=== PATIENT | male | born 2000 | race African-American/Black ===

== ENCOUNTER 2021-07-25 21:19 | Emergency (ER) | payer MEDICAID ==
[~2021-07-25] VITALS: Ht 180.3 cm; Wt 68.0 kg
[2021-07-25 21:19] VITALS: BP 131/84
== END 2021-07-25 23:34 | disposition left against medical advice (07) ==
LOC: ER 21:21
DX: R21 Rash and other nonspecific skin eruption (principal); Z53.21 Procedure and treatment not carried out due to patient leaving prior to being seen by health care provider